=== PATIENT | female | born 1995 ===

== ENCOUNTER 2022-04-14 13:58 | Outpatient (CLI) | payer OTHER | END 2022-04-14 15:00 | disposition home or self-care (01) | LOC: PRENATAL 13:58 | PROVIDERS: ATTEND Obstetrics & Gynecology Maternal & Fetal Medicine | DX: Z76.1 Encounter for health supervision and care of foundling (principal) ==

== ENCOUNTER 2022-04-29 12:01 | Outpatient (CLI) | payer OTHER | END 2022-04-29 13:15 | disposition home or self-care (01) | LOC: PRENATAL 12:01 | PROVIDERS: ATTEND Obstetrics & Gynecology Maternal & Fetal Medicine | DX: Z76.1 Encounter for health supervision and care of foundling (principal) ==

== ENCOUNTER 2022-05-20 09:27 | Outpatient (CLI) | payer OTHER ==
[2022-05-25] MEDS ORDERED: HUMULIN N100 UNIT/2 SUBCUTANEO (15:03)
[2022-05-25] MEDS ORDERED: INSULIN SYRING1 EA29 SUBCUTANEO (15:04)
== END 2022-05-20 10:45 | disposition home or self-care (01) ==
LOC: PRENATAL 09:27
PROVIDERS: ATTEND Obstetrics & Gynecology Maternal & Fetal Medicine
DX: O35.9XX0 Maternal care for (suspected) fetal abnormality and damage, unspecified, not applicable or unspecified (principal); O35.3XX0 Maternal care for (suspected) damage to fetus from viral disease in mother, not applicable or unspecified; O34.219 Maternal care for unspecified type scar from previous cesarean delivery; Z3A.20 20 weeks gestation of pregnancy

== ENCOUNTER 2022-07-14 09:53 | Outpatient (CLI) | payer OTHER ==
[~2022-07-14 09:53] MED LIST: HUMULIN N100 UNIT/2 SUBCUTANEO; INSULIN SYRING1 EA29 SUBCUTANEO
[2022-07-15] MEDS ORDERED: HUMULIN N100 UNIT/2 SUBCUTANEO (15:26)
[2022-07-15] MEDS ORDERED: HUMULIN R100 UNIT/1 SUBCUTANEO (15:27)
[2022-07-15] MEDS ORDERED: INSULIN SYRING1 EA29 SUBCUTANEO (15:28)
== END 2022-07-14 11:32 | disposition home or self-care (01) ==
LOC: PRENATAL 09:53
PROVIDERS: ATTEND Obstetrics & Gynecology Maternal & Fetal Medicine
DX: O26.849 Uterine size-date discrepancy, unspecified trimester (principal); O34.219 Maternal care for unspecified type scar from previous cesarean delivery; O24.419 Gestational diabetes mellitus in pregnancy, unspecified control; O99.019 Anemia complicating pregnancy, unspecified trimester; Z3A.28 28 weeks gestation of pregnancy

== ENCOUNTER 2022-08-11 09:49 | Outpatient (CLI) | payer OTHER ==
[~2022-08-11 09:49] MED LIST changes: +HUMULIN R100 UNIT/1 SUBCUTANEO
== END 2022-08-11 11:09 | disposition home or self-care (01) ==
LOC: PRENATAL 09:49
PROVIDERS: ATTEND Obstetrics & Gynecology Maternal & Fetal Medicine
DX: O26.849 Uterine size-date discrepancy, unspecified trimester (principal); O34.219 Maternal care for unspecified type scar from previous cesarean delivery; O24.419 Gestational diabetes mellitus in pregnancy, unspecified control; O99.019 Anemia complicating pregnancy, unspecified trimester; Z3A.32 32 weeks gestation of pregnancy

== ENCOUNTER 2022-09-08 09:40 | Outpatient (CLI) | payer OTHER | END 2022-09-08 10:20 | disposition home or self-care (01) | LOC: PRENATAL 09:40 | PROVIDERS: ATTEND Obstetrics & Gynecology Maternal & Fetal Medicine | DX: O26.849 Uterine size-date discrepancy, unspecified trimester (principal); O34.219 Maternal care for unspecified type scar from previous cesarean delivery; O24.419 Gestational diabetes mellitus in pregnancy, unspecified control; O99.019 Anemia complicating pregnancy, unspecified trimester; Z3A.36 36 weeks gestation of pregnancy ==

== ENCOUNTER 2022-09-19 10:59 | Inpatient (IN) | payer OTHER ==
[~2022-09-19] VITALS: Ht 160 cm; Wt 3.2 kg
== END 2022-09-22 14:16 | disposition home or self-care (01) | DRG 785 ==
LOC: LDR 10:59 → OB/GYN 10:59 → O/R 09-21 15:09 → OB/GYN 09-21 15:10
PROVIDERS: ADMIT Obstetrics & Gynecology; ATTEND Obstetrics & Gynecology
PROC: 0UB70ZZ Excision of Bilateral Fallopian Tubes, Open Approach (ICD-10-PCS; 2022-09-19)
PROC: 4A1HXCZ Monitoring of Products of Conception, Cardiac Rate, External Approach (ICD-10-PCS; 2022-09-19)
PROC: 10D00Z1 Extraction of Products of Conception, Low, Open Approach (ICD-10-PCS; principal; 2022-09-19 13:30)
DX: O13.4 Gestational [pregnancy-induced] hypertension without significant proteinuria, complicating childbirth (principal); O24.424 Gestational diabetes mellitus in childbirth, insulin controlled; Z3A.38 38 weeks gestation of pregnancy; Z37.0 Single live birth; Z20.822 Contact with and (suspected) exposure to COVID-19; Z30.2 Encounter for sterilization